=== PATIENT | female | born 1940 | race Caucasian/White ===

== ENCOUNTER 2018-12-22 15:51 | Emergency (ER) | payer OTHER ==
[2018-12-22 16:31] LABS: ADD MAN DIFF? NO
[2018-12-22 16:34] LABS: WHITE BLOOD COUNT 12.3 10^3/ul (4.8-10.8)
[2018-12-22 16:34] LABS: BASOPHILS % 0.3 % (0.0-2.0); EOSINOPHILS % 0.2 % (0.0-7.0); HEMATOCRIT 37.9 % (37.0-47.0); HEMOGLOBIN 12.5 g/dl (12.0-16.0); LYMPHOCYTES # 1.6 10^3/ul (0.8-2.9); LYMPHOCYTES % 12.8 % (15.0-51.0); MEAN PLATELET VOLUME 10.2 fl (7.4-10.4); MONOCYTE # 0.8 10^3/ul (0.3-0.9); MONOCYTES % 6.6 % (0.0-11.0); NEUTROPHIL # 9.8 10^3/ul (1.6-7.5); NEUTROPHILS % 79.7 % (39.0-77.0); PLATELET COUNT 310 10^3/UL (140-415); RED BLOOD COUNT 3.79 10^6/ul (4.20-5.40); RED CELL DISTRIBUTION WIDTH 13.2 % (11.5-14.5)
[2018-12-22] MEDS: ONDANSETRON 4 MG INJ IV (16:42)
[2018-12-22] MEDS: DIPHTH/TET/ACEL PERTUSS (ADULT) 0.5 ML VIAL IM* (16:43)
[2018-12-22] MEDS: SOD CHLORIDE 0.9% 1,000 ML IV (16:44)
[2018-12-22] MEDS: morphine 4 MG/ML VIAL IV (16:44)
[2018-12-22] MEDS: AMPICILLIN/SULB 1.5GM/NS (PMX) 50 ML IVPB (16:51)
[2018-12-22 17:05] LABS: ALANINE AMINOTRANSFERASE 17 IU/L (13-69); ALBUMIN 4.4 g/dl (3.3-4.9); ALBUMIN/GLOBULIN RATIO 1.25; ALKALINE PHOSPHATASE 75 IU/L (42-121); ANION GAP 10 (5-13); ASPARTATE AMINO TRANSFERASE 30 IU/L (15-46); BILIRUBIN,INDIRECT 0.3 mg/dl (0-1.1); BILIRUBIN,TOTAL 0.3 mg/dl (0.2-1.3); BLOOD UREA NITROGEN 22 mg/dl (7-20); CALCIUM 10.5 mg/dl (8.4-10.2); CARBON DIOXIDE 27 mmol/L (21-31); CHLORIDE 105 mmol/L (97-110); CREATININE 0.89 mg/dl (0.44-1.00); GLUCOSE 118 mg/dl (70-220); LIPASE 67 U/L (23-300); POTASSIUM 4.5 mmol/L (3.5-5.1); SODIUM 142 mmol/L (135-144); TOTAL PROTEIN 7.9 g/dl (6.1-8.1)
[2018-12-22] MEDS: MUPIROCIN 2% 22 GM OINT TOP (17:26)
[2018-12-22 17:59] LABS: INR 0.87; PROTIME 11.9 Sec (11.9-14.9); PT RATIO 0.9
[2018-12-22 18:00] LABS: PARTIAL THROMBOPLASTIN TIME 28.6 Sec (23.0-35.0)
== END 2018-12-22 19:00 | disposition home or self-care (01) ==
LOC: E/R 15:51
DX: S61.532A Puncture wound without foreign body of left wrist, initial encounter (principal); F17.210 Nicotine dependence, cigarettes, uncomplicated; I10 Essential (primary) hypertension; I25.10 Atherosclerotic heart disease of native coronary artery without angina pectoris; R07.9 Chest pain, unspecified; W54.0XXA Bitten by dog, initial encounter; Y92.9 Unspecified place or not applicable; Z23 Encounter for immunization
CPT/HCPCS: 36415; 71045; 73090; 73130-LT; 80053; 83690; 85025; 85610; 85730; 90471; 90715; 96365; 96375; 99284-25

== ENCOUNTER 2018-12-28 14:21 | Emergency (ER) | payer OTHER ==
[2018-12-28 16:41] LABS: ADD MAN DIFF? NO
[2018-12-28] MEDS: ONDANSETRON 4 MG INJ IV (16:50)
[2018-12-28] MEDS: CEFEPIME 1GM/50 ML (PMX) 50 ML IVPB (16:50)
[2018-12-28] MEDS: SODIUM CHLORIDE 0.9% 1L BAG IV* (16:50)
[2018-12-28 16:53] LABS: BASOPHILS % 0.2 % (0.0-2.0); EOSINOPHILS % 0.2 % (0.0-7.0); HEMATOCRIT 36.5 % (37.0-47.0); LYMPHOCYTES % 10.9 % (15.0-51.0); MEAN CORPUSCULAR HEMOGLOBIN 33.1 pg (29.0-33.0); MEAN CORPUSCULAR HGB CONC 32.9 g/dl (32.0-37.0); MEAN CORPUSCULAR VOLUME 100.8 fl (82.0-101.0); MEAN PLATELET VOLUME 9.9 fl (7.4-10.4); MONOCYTE # 0.7 10^3/ul (0.3-0.9); MONOCYTES % 7.2 % (0.0-11.0); NEUTROPHIL # 7.5 10^3/ul (1.6-7.5); NEUTROPHILS % 81.1 % (39.0-77.0); PLATELET COUNT 337 10^3/UL (140-415); RED BLOOD COUNT 3.62 10^6/ul (4.20-5.40); RED CELL DISTRIBUTION WIDTH 13.1 % (11.5-14.5)
[2018-12-28 16:53] LABS: WHITE BLOOD COUNT 9.3 10^3/ul (4.8-10.8)
[2018-12-28 17:12] LABS: INR 0.85; PROTIME 11.7 Sec (11.9-14.9); PT RATIO 0.9
[2018-12-28 17:13] LABS: PARTIAL THROMBOPLASTIN TIME 29.7 Sec (23.0-35.0)
[2018-12-28 17:18] LABS: ALANINE AMINOTRANSFERASE 10 IU/L (13-69); ALBUMIN 4.3 g/dl (3.3-4.9); ALKALINE PHOSPHATASE 72 IU/L (42-121); ANION GAP 10 (5-13); ASPARTATE AMINO TRANSFERASE 23 IU/L (15-46); BILIRUBIN,INDIRECT 0.3 mg/dl (0-1.1); BILIRUBIN,TOTAL 0.3 mg/dl (0.2-1.3); BLOOD UREA NITROGEN 16 mg/dl (7-20); C-REACTIVE PROTEIN 0.6 mg/dl (0.0-0.9); CALCIUM 9.9 mg/dl (8.4-10.2); CARBON DIOXIDE 29 mmol/L (21-31); CHLORIDE 104 mmol/L (97-110); CREATININE 0.75 mg/dl (0.44-1.00); GLUCOSE 100 mg/dl (70-220); POTASSIUM 3.7 mmol/L (3.5-5.1); SODIUM 143 mmol/L (135-144); TOTAL PROTEIN 7.6 g/dl (6.1-8.1)
[2018-12-28] MEDS: VANCOMYCIN 1 GM (PMX) 250 ML IVPB (17:32)
[2018-12-28 17:47] LABS: LACTIC ACID 1.1 mmol/L (0.5-2.0)
[2018-12-28 18:00] LABS: ERYTHROCYTE SEDIMENTATION RATE 51 mm/Hr (0-30)
[2018-12-28] MEDS: BACITRACIN 0.9 GM OINT TOP (18:57)
== END 2018-12-28 19:41 | disposition home or self-care (01) ==
LOC: E/R 14:21
DX: S61.432D Puncture wound without foreign body of left hand, subsequent encounter (principal); I10 Essential (primary) hypertension; J44.9 Chronic obstructive pulmonary disease, unspecified; F17.210 Nicotine dependence, cigarettes, uncomplicated; W54.0XXD Bitten by dog, subsequent encounter; Z79.01 Long term (current) use of anticoagulants
CPT/HCPCS: 36415; 71045; 73130-LT; 80053; 83605; 85025; 85610; 85651; 85730; 86140; 87040; 93005; 93971; 96374; 96375; 99285-25

== ENCOUNTER 2019-05-07 11:52 | Inpatient (IN) | payer OTHER ==
[2019-05-07] MEDS: MAGNESIUM SULFATE 2 GM/50 ML 50 ML IVPB (13:00)
[2019-05-07] MEDS: DILTIAZEM 25 MG INJ IV (13:00)
[2019-05-07] MEDS: SOD CHLORIDE 0.9% 1,000 ML IV ×2 (13:01→17:06)
[2019-05-07 13:11] LABS: ADD MAN DIFF? NO
[2019-05-07 13:12] LABS: BASOPHILS % 0.2 % (0.0-2.0); HEMATOCRIT 43.5 % (37.0-47.0); HEMOGLOBIN 13.8 g/dl (12.0-16.0); LYMPHOCYTES # 0.6 10^3/ul (0.8-2.9); LYMPHOCYTES % 3.4 % (15.0-51.0); MEAN CORPUSCULAR HEMOGLOBIN 31.6 pg (29.0-33.0); MEAN CORPUSCULAR HGB CONC 31.7 g/dl (32.0-37.0); MEAN CORPUSCULAR VOLUME 99.5 fl (82.0-101.0); MEAN PLATELET VOLUME 12.9 fl (7.4-10.4); MONOCYTE # 1.1 10^3/ul (0.3-0.9); NEUTROPHILS % 89.8 % (39.0-77.0); NUCLEATED RED BLOOD CELLS% 0.2 /100WBC (0.0-0.0); PLATELET COUNT 155 10^3/UL (140-415); RED BLOOD COUNT 4.37 10^6/ul (4.20-5.40); RED CELL DISTRIBUTION WIDTH 14.6 % (11.5-14.5)
[2019-05-07 13:12] LABS: WHITE BLOOD COUNT 17.8 10^3/ul (4.8-10.8)
[2019-05-07 13:34] LABS: ALANINE AMINOTRANSFERASE 29 IU/L (13-69); ALBUMIN 3.2 g/dl (3.3-4.9); ALBUMIN/GLOBULIN RATIO 0.94; ALKALINE PHOSPHATASE 84 IU/L (42-121); ASPARTATE AMINO TRANSFERASE 38 IU/L (15-46); BILIRUBIN,INDIRECT 0.9 mg/dl (0-1.1); BILIRUBIN,TOTAL 0.9 mg/dl (0.2-1.3); BLOOD UREA NITROGEN 45 mg/dl (7-20); CALCIUM 8.9 mg/dl (8.4-10.2); CARBON DIOXIDE 23 mmol/L (21-31); CREATININE 1.06 mg/dl (0.44-1.00); GLUCOSE 206 mg/dl (70-220); LIPASE 19 U/L (23-300); TOTAL PROTEIN 6.6 g/dl (6.1-8.1)
[2019-05-07 13:37] LABS: ADD UMIC YES; UR ASCORBIC ACID NEGATIVE (NEGATIVE); UR BACTERIA FEW /HPF (NONE SEEN); UR BILIRUBIN (Dip) NEGATIVE (NEGATIVE); UR BLOOD (Dip) NEGATIVE (NEGATIVE); UR CLARITY SLIGHTLY CLOUDY (CLEAR); UR COLOR AMBER (YELLOW); UR GLUCOSE (Dip) NEGATIVE (NEGATIVE); UR KETONES (Dip) NEGATIVE (NEGATIVE); UR LEUKOCYTE ESTERASE (Dip) NEGATIVE Leu/ul (NEGATIVE); UR MUCUS FEW /HPF (NONE SEEN); UR NITRITE (Dip) NEGATIVE (NEGATIVE); UR RBC 2 /HPF (0-5); UR SPECIFIC GRAVITY (Dip) 1.026 (1.003-1.030); UR SQUAMOUS EPITHELIAL CELL FEW /HPF (FEW); UR TOTAL PROTEIN (Dip) 2+ mg/dl (NEGATIVE); UR UROBILINOGEN (Dip) 2+ mg/dL (NEGATIVE); UR WBC 1 /HPF (0-5)
[2019-05-07] MEDS: DILTIAZEM-D5W 125MG/125ML DRIP 125 ML IV ×2 (13:42→15:22)
[2019-05-07 14:00] LABS: TROPONIN-I 0.739 ng/ml (0.000-0.120)
[2019-05-07] MEDS ORDERED: ONDANSETRON 4 MG INJ IV (14:00)
[2019-05-07] MEDS ORDERED: ACETAMINOPHEN 325 MG TAB PO (14:00)
[2019-05-07 14:42] LABS: ANION GAP 7 (5-13); CHLORIDE 111 mmol/L (97-110); POTASSIUM 4.3 mmol/L (3.5-5.1); SODIUM 141 mmol/L (135-144)
[2019-05-07] MEDS: ASPIRIN 81 MG TAB PO (15:21)
[2019-05-07] MEDS: METOPROLOL 50 MG TAB PO (15:21)
[2019-05-07 20:13] LABS: CREATINE KINASE 85 IU/L (23-200)
[2019-05-07 20:26] LABS: CK INDEX 4.6; CK-MB 3.91 ng/ml (0.0-2.4)
[2019-05-07 20:28] LABS: TROPONIN-I 0.617 ng/ml (0.000-0.120)
[2019-05-07] MEDS: ATORVASTATIN 40 MG TAB PO (23:34)
[2019-05-07] MEDS: METOPROLOL 25 MG TAB PO (23:35)
[2019-05-07] MEDS: ENOXAPARIN 60 MG/0.6 ML SYG SC (23:37)
[2019-05-08 01:27] LABS: TROPONIN-I 0.521 ng/ml (0.000-0.120)
[2019-05-08] MEDS: SOD CHLORIDE 0.9% 1,000 ML IV ×2 (06:17→18:11)
[2019-05-08] MEDS: LORAZEPAM 2 MG INJ IV (06:18)
[2019-05-08] MEDS: METOPROLOL 25 MG TAB PO ×2 (06:19→13:38)
[2019-05-08] MEDS: ASPIRIN 81 MG TAB PO (09:00)
[2019-05-08] MEDS: ENOXAPARIN 60 MG/0.6 ML SYG SC ×2 (09:05→22:56)
[2019-05-08 09:08] LABS: ADD MAN DIFF? NO
[2019-05-08 09:13] LABS: BASOPHILS % 0.1 % (0.0-2.0); HEMATOCRIT 40.5 % (37.0-47.0); LYMPHOCYTES % 6.5 % (15.0-51.0); MEAN CORPUSCULAR HEMOGLOBIN 31.9 pg (29.0-33.0); MEAN CORPUSCULAR HGB CONC 32.1 g/dl (32.0-37.0); MEAN CORPUSCULAR VOLUME 99.3 fl (82.0-101.0); MEAN PLATELET VOLUME 12.9 fl (7.4-10.4); MONOCYTE # 1.2 10^3/ul (0.3-0.9); MONOCYTES % 7.7 % (0.0-11.0); NEUTROPHIL # 13.2 10^3/ul (1.6-7.5); NEUTROPHILS % 85.1 % (39.0-77.0); NUCLEATED RED BLOOD CELLS% 0.2 /100WBC (0.0-0.0); PLATELET COUNT 174 10^3/UL (140-415); RED BLOOD COUNT 4.08 10^6/ul (4.20-5.40); RED CELL DISTRIBUTION WIDTH 14.6 % (11.5-14.5)
[2019-05-08 09:13] LABS: WHITE BLOOD COUNT 15.6 10^3/ul (4.8-10.8)
[2019-05-08 09:35] LABS: ANION GAP 7 (5-13); BLOOD UREA NITROGEN 41 mg/dl (7-20); CALCIUM 7.9 mg/dl (8.4-10.2); CARBON DIOXIDE 20 mmol/L (21-31); CHLORIDE 116 mmol/L (97-110); CREATINE KINASE 236 IU/L (23-200); CREATININE 0.89 mg/dl (0.44-1.00); GLUCOSE 102 mg/dl (70-220); POTASSIUM 4.2 mmol/L (3.5-5.1); SODIUM 143 mmol/L (135-144)
[2019-05-08 09:48] LABS: CK INDEX 2.1; CK-MB 5.01 ng/ml (0.0-2.4)
[2019-05-08 09:51] LABS: TROPONIN-I 0.376 ng/ml (0.000-0.120)
[2019-05-08] MEDS: ATORVASTATIN 40 MG TAB PO (22:53)
[2019-05-08] MEDS: METOPROLOL (XL) 25 MG TAB PO (22:54)
[2019-05-09] MEDS: DIGOXIN 500 MCG INJ IV (00:59)
[2019-05-09 05:49] LABS: ADD MAN DIFF? NO
[2019-05-09 05:51] LABS: BASOPHILS % 0.1 % (0.0-2.0); HEMATOCRIT 43.5 % (37.0-47.0); HEMOGLOBIN 13.7 g/dl (12.0-16.0); LYMPHOCYTES % 5.4 % (15.0-51.0); MEAN CORPUSCULAR HEMOGLOBIN 31.3 pg (29.0-33.0); MEAN CORPUSCULAR HGB CONC 31.5 g/dl (32.0-37.0); MEAN CORPUSCULAR VOLUME 99.3 fl (82.0-101.0); MEAN PLATELET VOLUME 12.3 fl (7.4-10.4); MONOCYTE # 1.2 10^3/ul (0.3-0.9); MONOCYTES % 6.7 % (0.0-11.0); NEUTROPHIL # 15.8 10^3/ul (1.6-7.5); NEUTROPHILS % 87.1 % (39.0-77.0); NUCLEATED RED BLOOD CELLS # 0.1 10^3/ul (0.0-0.0); NUCLEATED RED BLOOD CELLS% 0.3 /100WBC (0.0-0.0); PLATELET COUNT 212 10^3/UL (140-415); RED BLOOD COUNT 4.38 10^6/ul (4.20-5.40); RED CELL DISTRIBUTION WIDTH 14.6 % (11.5-14.5)
[2019-05-09 05:51] LABS: WHITE BLOOD COUNT 18.1 10^3/ul (4.8-10.8)
[2019-05-09] MEDS: SOD CHLORIDE 0.9% 1,000 ML IV ×2 (06:02→20:29)
[2019-05-09 06:21] LABS: ANION GAP 8 (5-13); BLOOD UREA NITROGEN 39 mg/dl (7-20); CALCIUM 7.9 mg/dl (8.4-10.2); CARBON DIOXIDE 19 mmol/L (21-31); CHLORIDE 117 mmol/L (97-110); CREATININE 0.94 mg/dl (0.44-1.00); GLUCOSE 77 mg/dl (70-220); SODIUM 144 mmol/L (135-144)
[2019-05-09] MEDS: ASPIRIN 81 MG TAB PO (09:00)
[2019-05-09] MEDS: ENOXAPARIN 60 MG/0.6 ML SYG SC (09:23)
[2019-05-09] MEDS: METOPROLOL (XL) 25 MG TAB PO ×2 (10:11→17:17)
[2019-05-09] MEDS: LISINOPRIL 5 MG TAB PO (10:13)
[2019-05-09] MEDS: CEFTRIAXONE 1 GM/50 ML (PMX) 50 ML IVPB (12:17)
[2019-05-09] MEDS ORDERED: DILTIAZEM 25 MG INJ IV (12:30)
[2019-05-09] MEDS: APIXABAN 5 MG TABLET PO (20:29)
[2019-05-09] MEDS: ATORVASTATIN 40 MG TAB PO (20:29)
[2019-05-09] MEDS: METOPROLOL (XL) 50 MG TAB PO (20:31)
[2019-05-10] MEDS: SOD CHLORIDE 0.9% 1,000 ML IV (05:38)
[2019-05-10 06:07] LABS: ADD MAN DIFF? NO
[2019-05-10 06:16] LABS: WHITE BLOOD COUNT 13.2 10^3/ul (4.8-10.8)
[2019-05-10 06:16] LABS: BASOPHILS % 0.2 % (0.0-2.0); EOSINOPHILS % 0.1 % (0.0-7.0); HEMATOCRIT 39.7 % (37.0-47.0); HEMOGLOBIN 12.5 g/dl (12.0-16.0); LYMPHOCYTES # 0.7 10^3/ul (0.8-2.9); LYMPHOCYTES % 5.5 % (15.0-51.0); MEAN CORPUSCULAR HEMOGLOBIN 31.4 pg (29.0-33.0); MEAN CORPUSCULAR HGB CONC 31.5 g/dl (32.0-37.0); MEAN CORPUSCULAR VOLUME 99.7 fl (82.0-101.0); MEAN PLATELET VOLUME 11.9 fl (7.4-10.4); MONOCYTE # 1.1 10^3/ul (0.3-0.9); NEUTROPHIL # 11.3 10^3/ul (1.6-7.5); NEUTROPHILS % 85.8 % (39.0-77.0); NUCLEATED RED BLOOD CELLS% 0.2 /100WBC (0.0-0.0); PLATELET COUNT 247 10^3/UL (140-415); RED BLOOD COUNT 3.98 10^6/ul (4.20-5.40); RED CELL DISTRIBUTION WIDTH 14.6 % (11.5-14.5)
[2019-05-10] MEDS: ASPIRIN 81 MG TAB PO (08:30)
[2019-05-10] MEDS: LISINOPRIL 5 MG TAB PO (08:30)
[2019-05-10] MEDS: METOPROLOL (XL) 50 MG TAB PO ×2 (08:31→20:23)
[2019-05-10] MEDS: APIXABAN 5 MG TABLET PO ×2 (08:31→20:23)
[2019-05-10] MEDS: CEFTRIAXONE 1 GM/50 ML (PMX) 50 ML IVPB (11:19)
[2019-05-10] MEDS: NICOTINE (14 MG/24 HR) PATCH TRANSDERM (11:19)
[2019-05-10] MEDS: ATORVASTATIN 40 MG TAB PO (20:23)
[2019-05-11 05:58] LABS: ADD MAN DIFF? NO
[2019-05-11 06:04] LABS: BASOPHILS % 0.3 % (0.0-2.0); EOSINOPHILS % 0.2 % (0.0-7.0); HEMATOCRIT 44.3 % (37.0-47.0); HEMOGLOBIN 13.4 g/dl (12.0-16.0); LYMPHOCYTES # 0.9 10^3/ul (0.8-2.9); LYMPHOCYTES % 8.1 % (15.0-51.0); MEAN CORPUSCULAR HEMOGLOBIN 31.6 pg (29.0-33.0); MEAN CORPUSCULAR HGB CONC 30.2 g/dl (32.0-37.0); MEAN CORPUSCULAR VOLUME 104.5 fl (82.0-101.0); MEAN PLATELET VOLUME 11.9 fl (7.4-10.4); MONOCYTE # 0.8 10^3/ul (0.3-0.9); MONOCYTES % 7.1 % (0.0-11.0); NEUTROPHIL # 9.8 10^3/ul (1.6-7.5); NEUTROPHILS % 83.8 % (39.0-77.0); NUCLEATED RED BLOOD CELLS% 0.2 /100WBC (0.0-0.0); PLATELET COUNT 230 10^3/UL (140-415); RED BLOOD COUNT 4.24 10^6/ul (4.20-5.40)
[2019-05-11 06:04] LABS: WHITE BLOOD COUNT 11.7 10^3/ul (4.8-10.8)
[2019-05-11 06:27] LABS: ANION GAP 7 (5-13); BLOOD UREA NITROGEN 33 mg/dl (7-20); CALCIUM 8.1 mg/dl (8.4-10.2); CARBON DIOXIDE 17 mmol/L (21-31); CHLORIDE 118 mmol/L (97-110); GLUCOSE 112 mg/dl (70-220); POTASSIUM 4.7 mmol/L (3.5-5.1); SODIUM 142 mmol/L (135-144)
[2019-05-11] MEDS: NICOTINE (14 MG/24 HR) PATCH TRANSDERM (09:05)
[2019-05-11] MEDS: APIXABAN 5 MG TABLET PO ×2 (09:06→20:28)
[2019-05-11] MEDS: LISINOPRIL 5 MG TAB PO (09:06)
[2019-05-11] MEDS: ASPIRIN 81 MG TAB PO (09:06)
[2019-05-11] MEDS: METOPROLOL (XL) 50 MG TAB PO ×2 (09:06→20:31)
[2019-05-11] MEDS: CEFTRIAXONE 1 GM/50 ML (PMX) 50 ML IVPB (12:10)
[2019-05-11] MEDS: LISINOPRIL 10 MG TAB PO (12:25)
[2019-05-11] MEDS: FUROSEMIDE 40 MG INJ IV ×2 (12:25→23:59)
[2019-05-11] MEDS: AMLODIPINE 5 MG TAB PO ×2 (12:26→20:31)
[2019-05-11] MEDS: ATORVASTATIN 40 MG TAB PO (20:28)
[2019-05-12 06:34] LABS: ADD MAN DIFF? NO
[2019-05-12 06:43] LABS: WHITE BLOOD COUNT 12.6 10^3/ul (4.8-10.8)
[2019-05-12 06:43] LABS: BASOPHILS % 0.1 % (0.0-2.0); EOSINOPHILS % 0.2 % (0.0-7.0); HEMOGLOBIN 14.2 g/dl (12.0-16.0); LYMPHOCYTES # 0.9 10^3/ul (0.8-2.9); LYMPHOCYTES % 7.2 % (15.0-51.0); MEAN CORPUSCULAR HEMOGLOBIN 30.7 pg (29.0-33.0); MEAN CORPUSCULAR HGB CONC 30.2 g/dl (32.0-37.0); MEAN CORPUSCULAR VOLUME 101.5 fl (82.0-101.0); MEAN PLATELET VOLUME 12.4 fl (7.4-10.4); MONOCYTE # 0.7 10^3/ul (0.3-0.9); MONOCYTES % 5.5 % (0.0-11.0); NEUTROPHILS % 86.7 % (39.0-77.0); PLATELET COUNT 242 10^3/UL (140-415); RED BLOOD COUNT 4.63 10^6/ul (4.20-5.40); RED CELL DISTRIBUTION WIDTH 14.9 % (11.5-14.5)
[2019-05-12 07:14] LABS: ANION GAP 8 (5-13); BLOOD UREA NITROGEN 29 mg/dl (7-20); CALCIUM 8.5 mg/dl (8.4-10.2); CARBON DIOXIDE 26 mmol/L (21-31); CHLORIDE 112 mmol/L (97-110); CREATININE 0.66 mg/dl (0.44-1.00); GLUCOSE 119 mg/dl (70-220); POTASSIUM 4.4 mmol/L (3.5-5.1); SODIUM 146 mmol/L (135-144)
[2019-05-12 07:15] LABS: HEMOGLOBIN A1C 5.5 % (0-5.9)
[2019-05-12 07:16] LABS: MAGNESIUM 1.9 mg/dl (1.7-2.5)
[2019-05-12] MEDS: METOPROLOL (XL) 50 MG TAB PO ×2 (09:33→20:41)
[2019-05-12] MEDS: ASPIRIN 81 MG TAB PO (09:33)
[2019-05-12] MEDS: LISINOPRIL 10 MG TAB PO (09:34)
[2019-05-12] MEDS: AMLODIPINE 5 MG TAB PO ×2 (09:34→20:41)
[2019-05-12] MEDS: NICOTINE (14 MG/24 HR) PATCH TRANSDERM (09:35)
[2019-05-12] MEDS: APIXABAN 5 MG TABLET PO ×2 (09:36→20:42)
[2019-05-12] MEDS: CEFTRIAXONE 1 GM/50 ML (PMX) 50 ML IVPB (13:12)
[2019-05-12] MEDS: FUROSEMIDE 40 MG INJ IV (13:12)
[2019-05-12] MEDS: ATORVASTATIN 40 MG TAB PO (20:39)
[2019-05-12] MEDS: MAGNESIUM SULFATE 2 GM/50 ML 50 ML IVPB (20:50)
== END 2019-05-12 22:40 | DRG 308 ==
LOC: 6WM 05-10 21:13 → E/R 11:52 → 6WM 13:55
DX: I48.2 Chronic atrial fibrillation (principal); I50.23 Acute on chronic systolic (congestive) heart failure; G93.41 Metabolic encephalopathy; J44.1 Chronic obstructive pulmonary disease with (acute) exacerbation; I11.0 Hypertensive heart disease with heart failure; Z88.2 Allergy status to sulfonamides; Z72.0 Tobacco use; I73.9 Peripheral vascular disease, unspecified; E86.0 Dehydration; R74.8 Abnormal levels of other serum enzymes; I42.9 Cardiomyopathy, unspecified; I08.1 Rheumatic disorders of both mitral and tricuspid valves; D72.829 Elevated white blood cell count, unspecified; I27.20 Pulmonary hypertension, unspecified; I42.0 Dilated cardiomyopathy; T42.4X5A Adverse effect of benzodiazepines, initial encounter
CPT/HCPCS: 36415; 70450; 71045; 80048; 80053; 81001; 82550; 82553; 82607; 83036; 83690; 83735; 84484; 85025; 93005; 93306; 96365; 96375; 97110; 97162; 97530; 99285-25